=== PATIENT | female | born 1970 | race Caucasian/White ===

== ENCOUNTER → 2017-07-03 | Outpatient (CLI) | payer OTHER ==
[~2017-07-03] MED LIST: ABILIFY10 MG; AUGMENTIN 875 M1 TAB PO; KEFLEX 500MG.500 MG PO; MEDROL 4MG. DOSE4 MG PO; NOMEDS
--- NOTE | 2017-07-05 09:32 | RADIOLOGY REPORT PS360 ---
DIG DIG MAMM-SCREEN JENNA W/CAD CAD Screening ORDERING PHYSICIAN : Omar Verdin MD PATIENT AGE: 47 years GENDER: Female COMPARISON: Previous mammograms: April also February 2008 INDICATION: Routine screening no hormones no new complaints noncontributory family history. TECHNIQUE: Standard CC and MLO images were obtained. R2 CAD reviewed. . Additional axillary cc views were included and helpful FINDINGS: Moderately dense breast bilaterally slightly decreases to mammography in the areas with the breast is more dense. No prominent new findings. No dominant mass nor suspicious calcifications. RIGHT BREAST:. Most likely the right breast is stable, but I would note would note slight accentuated density laterally on cc view and both superior and inferior on MLO view. I suspect this reflects summation shadow most likely.. However after final review of images, to be cautious a spot CC & MLO view of the breast recommended to further evaluate. These areas persist a ultrasound may be subsequent warranted. LEFT BREAST:. Stable no new findings follow up one year recommended IMPRESSION: Right breast No prominent findings but are some areas of subtle increased density at the right breast which I believe are merely related most likely summation shadows. HoweverRecommend spot views to further evaluate right breast. Left breast unchanged follow-up in one year BI-RADS CATEGORY: 0_Incomplete: Need additional imaging. RECOMMENDED FOLLOWUP: ADD ADDITIONAL IMAGING spot views right breast (A letter has been sent to the patient regarding results of the study.)
== END ==
LOC: RAD 09:13
DX: Z12.31 Encounter for screening mammogram for malignant neoplasm of breast (principal)
CPT/HCPCS: G0202

== ENCOUNTER → 2017-07-11 | Outpatient (CLI) | payer OTHER ==
--- NOTE | 2017-07-12 10:21 | RADIOLOGY REPORT PS360 ---
DIG MAMM-DX UNI A/VW-RT W/CAD, US BREAST-RT COMPLETE W/AXILLA Ordering Physician: Omar Verdin MD Patient Age: 47 years Female COMPARISON: Previous breast mammograms June 2016, April 2012, and recent screening mammogram 07/03/2017 Indication. Follow-up asymmetric densities seen on recent screening mammogram 07/03/2017. DIGITAL DIAGNOSTIC RIGHT MAMMOGRAM with spot views: Additional images of right breast are compared to the recent screening mammogram. The areas of density central breast question on previous cc screening mammogram dissipate on today's rolled cc views. . Area density inferior right breast at dissipates on the MLO spot view. This suggests these were summation shadow but ultrasound will be performed to survey as well Would suggest 5 -6 month follow-up for these areas of mild asymmetry. Self breast examination would be encouraged. ] RIGHT BREAST ULTRASOUND including axillary survey: Survey imaging entire right breast including survey the axillary region performed./BH No suspicious lesions. No architectural distortion. A few small cysts noted. 9 o'clock position near nipple elongated thin 7 mm x 3 mm mm cyst. 7:00. Central breast Small less than 4 mm X 2 mm cyst 11:00. Subtle 4.3 mm debris-filled cyst deep central breast. Axillary survey-no significant findings. Benign appearing lymph nodes . IMPRESSION ...... 1. Additional mammogram Spot views decreased concern regarding any significant new findings,. Recommend follow-up right mammogram 5-6 months to further confirm stability. 2. Right breast ultrasound shows a few small cyst. No areas of concern imaged BI-RADS CATEGORY: 3 RECOMMENDED FOLLOWUP: 5M- 6MONTH FOLLOW-UP right mammogram (A letter has been sent to the patient regarding results of the study.)
== END ==
LOC: RAD 14:22
DX: R92.8 Other abnormal and inconclusive findings on diagnostic imaging of breast (principal)
CPT/HCPCS: G0206-RT